=== PATIENT | female | born 1970 | race Caucasian/White ===

== ENCOUNTER 2017-08-13 19:12 | Emergency (ER) | payer SELFPAY | END 2017-08-13 22:16 | disposition left against medical advice (07) | LOC: ERS 19:12 | DX: Z53.21 Procedure and treatment not carried out due to patient leaving prior to being seen by health care provider (principal) | CPT/HCPCS: 93005 ==

== ENCOUNTER 2017-09-09 16:42 | Emergency (ER) | payer SELFPAY ==
[2017-09-09 17:24] LABS: #Basophils 0.1 thou/uL (0.0-0.2); #Eosinphils 0.2 thou/uL (0.0-0.7); #Lymphocytes 1.6 thou/uL (1.20-3.40); #Monocytes 0.6 thou/uL (0.11-0.59); #Neutrophils 4.5 thou/uL (1.40-6.50); %Basophils 0.8 % (0.0-1.0); %Eosinophils 2.9 % (0.0-10.0); %Lymphocytes 23.2 % (21.0-51.0); %Monocytes 8.3 % (0.0-10.0); %Neutrophils 64.8 % (42.0-75.0); Hemoglobin 13.6 g/dL (12.0-16.0); Mean Corpuscular HGB CONC 32.6 g/dL (32.0-36.0); Mean Corpuscular Hemoglobin 33.1 pg (27.0-31.0); Mean Platelet Volume 7.1 fL (7.4-10.4); Platelet Count 259 thou/uL (130-400); RBC Distribution Width 14.6 % (11.5-14.5); Red Blood Cell (RBC) Count 4.11 mill/uL (4.20-5.40); White Blood Cell (WBC) Count 6.9 thou/uL (4.8-10.8)
--- NOTE | 2017-09-09 17:45 | RAD ---
PORTABLE CHEST: 09/09/17 HISTORY: Chest pain. COMPARISON: 12/28/15 study. Heart size and mediastinum are within normal limits. Lungs are clear of infiltrates. Postoperative ch anges of the right clavicle are noted. Granulomas noted in the left upper lobe. IMPRESSION: No active intrathoracic disease. POS: [facility]
[2017-09-09 17:46] LABS: ALT (SGPT) 14 U/L (8-55); AST (SGOT) 24 U/L (5-34); Albumin 3.7 g/dL (3.5-5.0); Alkaline Phosphatase 71 U/L (40-150); Anion Gap 12 mmol/L (10-20); BUN (Urea Nitrogen) 12 mg/dL (7.0-18.7); Bilirubin, Total 0.6 mg/dL (0.2-1.2); CK (CPK) 44 U/L (29-168); Calc. Creatinine Clearance 0 mL/min (70-130); Calcium 9.2 mg/dL (7.8-10.44); Carbon Dioxide 23 mmol/L (22-29); Chloride 102 mmol/L (98-107); Estimated GFR-MDRD 81; Globulin 3.1 g/dL (2.4-3.5); Glucose 92 mg/dL (70-105); Lipase 9 U/L (8-78); Potassium 3.8 mmol/L (3.5-5.1); Protein, Total 6.8 g/dL (6.0-8.3); Sodium 133 mmol/L (136-145)
[2017-09-09 17:50] LABS: CKMB 1.5 ng/mL (0-6.6); Troponin I Less than 0.010 ng/mL (< 0.028)
== END 2017-09-09 21:30 | disposition left against medical advice (07) ==
LOC: ERS 16:42
DX: Z53.21 Procedure and treatment not carried out due to patient leaving prior to being seen by health care provider (principal)
CPT/HCPCS: 36415; 71045; 80053; 82550; 82553; 83690; 84484; 85025; 93005

== ENCOUNTER 2017-11-09 00:15 | Emergency (ER) | payer SELFPAY ==
[2017-11-09] MEDS ORDERED: Lidocaine 1% PF 5 ML VIAL ONE (00:35)
[2017-11-09] MEDS ORDERED: Lidocaine 1% w/Epinephrine 1:100K 20 ML VIAL ONE (00:57)
[2017-11-09] MEDS ORDERED: Ketorolac Tromethamine 30 MG/ML VIAL ONE (01:39)
[2017-11-09] MEDS ORDERED: Clindamycin 150 MG CAP ONE (03:24)
== END 2017-11-09 03:24 | disposition home or self-care (01) ==
LOC: ERS 00:15
DX: L02.416 Cutaneous abscess of left lower limb (principal); I10 Essential (primary) hypertension; F41.9 Anxiety disorder, unspecified; F32.9 Major depressive disorder, single episode, unspecified; F17.210 Nicotine dependence, cigarettes, uncomplicated
CPT/HCPCS: 10060; 87070; 87205; 96372; J1885; J2001

== ENCOUNTER 2017-11-12 12:29 | Emergency (ER) | payer SELFPAY | END 2017-11-12 14:53 | disposition left against medical advice (07) | LOC: ERS 12:29 | DX: Z53.21 Procedure and treatment not carried out due to patient leaving prior to being seen by health care provider (principal) ==

== ENCOUNTER 2018-04-05 16:26 | Emergency (ER) | payer SELFPAY ==
[2018-04-05 17:00] LABS: Bilirubin Small (Negative); Blood, Urine Negative (Negative); Clarity CLOUDY (Clear); Glucose, Urine (Dipstick) Negative (Negative); Leukocyte Small (Negative); Nitrite Negative (Negative); Protein, Urine (Dipstick) Negative (Neg-Trace)
[2018-04-05 17:01] LABS: Bacteria/HPF 1+ HPF (None Seen); Hyaline Casts/LPF 4-6 HYALINE CAST LPF (0-3 Hyaline); Pathc Cast-AUWi Flag 1.59 (0-2.49); Pregnancy Test - Urine (BHCG) Negative (Negative); Pregu Control Background? CLEAR/WHITE (CLR/WHITE); Pregu Control Bar Appear? YES (CONTROL BAR); RBC/HPF 0-3 HPF (0-3); WBC/HPF 0-3 HPF (0-3)
[2018-04-05 18:03] LABS: #Basophils 0.1 thou/uL (0.0-0.2); #Eosinphils 0.2 thou/uL (0.0-0.7); #Lymphocytes 2.2 thou/uL (1.20-3.40); #Monocytes 0.4 thou/uL (0.11-0.59); %Basophils 1.2 % (0.0-1.0); %Eosinophils 2.3 % (0.0-10.0); %Lymphocytes 32.2 % (21.0-51.0); %Monocytes 5.6 % (0.0-10.0); %Neutrophils 58.7 % (42.0-75.0); Hemoglobin 13.5 g/dL (12.0-16.0); Mean Corpuscular HGB CONC 33.7 g/dL (32.0-36.0); Mean Corpuscular Hemoglobin 32.6 pg (27.0-31.0); Mean Corpuscular Volume 96.8 fL (78.0-98.0); Mean Platelet Volume 6.4 fL (7.4-10.4); Platelet Count 259 thou/uL (130-400); RBC Distribution Width 12.9 % (11.5-14.5); Red Blood Cell (RBC) Count 4.13 mill/uL (4.20-5.40); White Blood Cell (WBC) Count 6.8 thou/uL (4.8-10.8)
[2018-04-05 18:25] LABS: ALT (SGPT) 9 U/L (8-55); AST (SGOT) 17 U/L (5-34); Albumin 3.9 g/dL (3.5-5.0); Alkaline Phosphatase 86 U/L (40-150); Anion Gap 12 mmol/L (10-20); BUN (Urea Nitrogen) 7 mg/dL (7.0-18.7); Bilirubin, Total 0.3 mg/dL (0.2-1.2); Calc. Creatinine Clearance 0 mL/min (70-130); Calcium 9.1 mg/dL (7.8-10.44); Carbon Dioxide 23 mmol/L (22-29); Chloride 103 mmol/L (98-107); Estimated GFR-MDRD 81; Globulin 3.8 g/dL (2.4-3.5); Glucose 85 mg/dL (70-105); Lipase 6 U/L (8-78); Potassium 3.4 mmol/L (3.5-5.1); Protein, Total 7.7 g/dL (6.0-8.3); Sodium 135 mmol/L (136-145)
[2018-04-05] MEDS ORDERED: Ondansetron ODT 8 MG TAB ONE (18:38)
[2018-04-05] MEDS ORDERED: Dicyclomine 20 MG TAB ONE (18:40)
== END 2018-04-05 19:32 | disposition home or self-care (01) ==
LOC: ERS 16:26
DX: K29.70 Gastritis, unspecified, without bleeding (principal); Z71.6 Tobacco abuse counseling; F17.210 Nicotine dependence, cigarettes, uncomplicated; I10 Essential (primary) hypertension; M06.9 Rheumatoid arthritis, unspecified; J45.909 Unspecified asthma, uncomplicated; F41.9 Anxiety disorder, unspecified; F32.9 Major depressive disorder, single episode, unspecified; F22 Delusional disorders; Z79.899 Other long term (current) drug therapy
CPT/HCPCS: 36415; 80053; 81003; 81015; 81025; 82140; 83690; 85025; 99406

== ENCOUNTER 2018-04-21 02:16 | Emergency (ER) | payer SELFPAY ==
[2018-04-21] MEDS ORDERED: Sulfameth/Trimethoprim DS 800-160mg TAB ONE (04:13)
[2018-04-21] MEDS ORDERED: Cephalexin 250 MG CAP ONE (04:13)
--- NOTE | 2018-04-21 07:53 | ULT ---
PRELIMINARY REPORT/[facility]/EMERGENTY AFTER-HOURS PROCEDURE US Duplex Left Lower Extremity Veins CLINICAL HISTORY: 47 years old, female; Pain; Leg, upper; Left TECHNIQUE: Real-time duplex ultrasound scan of the left lower extremity veins integrating B-mode two dimensional vascular structure, Doppler spectral analysis, color flow Doppler imaging and compression. COMPARISON: No relevant prior studies available. FINDINGS: Deep veins: Normal. No DVT in the visualized common femoral, femoral, proximal deep femoral or poplit eal veins. The veins demonstrate normal color flow, are normally compressible, with normal phasic nilesh w and/or augmentation response. Superficial veins: Normal. No thrombus in the visualized great saphenous vein. Soft tissues: Benign-appearing lymph nodes within the left inguinal region, likely reactive. No popli teal cyst. IMPRESSION: No DVT. Thank you for allowing us to participate in the care of your patient. Dictated and Authenticated by: Phu Davis MD 04/21/2018 3:57 AM Central Time ([place] & [place]) FINAL REPORT VENOUS DOPPLER ULTRASOUND OF THE LEFT LOWER EXTREMITY: I agree with the preliminary report given by Dr. Phu Davis of [facility]. POS: [facility]
== END 2018-04-21 04:16 | disposition home or self-care (01) ==
LOC: ERS 02:16
DX: L03.317 Cellulitis of buttock (principal); F41.9 Anxiety disorder, unspecified; F22 Delusional disorders; F17.210 Nicotine dependence, cigarettes, uncomplicated; M06.9 Rheumatoid arthritis, unspecified; I10 Essential (primary) hypertension; J45.909 Unspecified asthma, uncomplicated; Z79.899 Other long term (current) drug therapy

== ENCOUNTER 2018-06-11 00:41 | Emergency (ER) | payer SELFPAY | END 2018-06-11 01:29 | disposition home or self-care (01) | LOC: ERS 00:41 | DX: F11.10 Opioid abuse, uncomplicated (principal); Z71.6 Tobacco abuse counseling; I10 Essential (primary) hypertension; J45.909 Unspecified asthma, uncomplicated; F41.9 Anxiety disorder, unspecified; F32.9 Major depressive disorder, single episode, unspecified; F17.210 Nicotine dependence, cigarettes, uncomplicated | CPT/HCPCS: 99406 ==

== ENCOUNTER 2018-06-25 21:12 | Inpatient (IN) | payer SELFPAY ==
--- NOTE | 2018-06-25 22:14 | RAD ---
TWO VIEWS OF THE CHEST: 06/25/18 COMPARISON: 01/25/17 HISTORY: Chest pain. FINDINGS: There is increased linear interstitial density noted bilaterally with pulmonary hyperinflation sugges ting COPD in the proper clinical setting, stable. There is postoperative hardware associated with the right clavicle. No pneumothorax, pleural fluid, focal consolidation, or alveolar edema. IMPRESSION: No acute findings - stable appearance of the chest as detailed above. POS: [facility]
[2018-06-25 22:17] LABS: ALT (SGPT) 11 U/L (8-55); AST (SGOT) 28 U/L (5-34); Albumin 3.7 g/dL (3.5-5.0); Alkaline Phosphatase 80 U/L (40-150); Anion Gap 15 mmol/L (10-20); BUN (Urea Nitrogen) 9 mg/dL (7.0-18.7); Bilirubin, Total 0.2 mg/dL (0.2-1.2); CK (CPK) 30 U/L (29-168); Calc. Creatinine Clearance 0 mL/min (70-130); Calcium 9.4 mg/dL (7.8-10.44); Carbon Dioxide 24 mmol/L (22-29); Chloride 102 mmol/L (98-107); Estimated GFR-MDRD 77; Globulin 4.2 g/dL (2.4-3.5); Glucose 104 mg/dL (70-105); Lipase 17 U/L (8-78); Potassium 4.9 mmol/L (3.5-5.1); Protein, Total 7.9 g/dL (6.0-8.3); Sodium 136 mmol/L (136-145)
[2018-06-25 22:20] LABS: CKMB 0.8 ng/mL (0-6.6); Troponin I Less than 0.010 ng/mL (< 0.028)
[2018-06-25 22:24] LABS: #Basophils 0.1 thou/uL (0.0-0.2); #Eosinphils 0.3 thou/uL (0.0-0.7); #Monocytes 0.6 thou/uL (0.11-0.59); #Neutrophils 4.1 thou/uL (1.40-6.50); %Basophils 1.2 % (0.0-1.0); %Eosinophils 4.1 % (0.0-10.0); %Lymphocytes 37.2 % (21.0-51.0); %Neutrophils 50.6 % (42.0-75.0); Hemoglobin 13.1 g/dL (12.0-16.0); Mean Corpuscular HGB CONC 31.9 g/dL (32.0-36.0); Mean Corpuscular Hemoglobin 30.4 pg (27.0-31.0); Mean Corpuscular Volume 95.6 fL (78.0-98.0); Mean Platelet Volume 6.8 fL (7.4-10.4); Platelet Count 344 thou/uL (130-400); RBC Distribution Width 12.6 % (11.5-14.5); Red Blood Cell (RBC) Count 4.31 mill/uL (4.20-5.40); White Blood Cell (WBC) Count 8.1 thou/uL (4.8-10.8)
[2018-06-26 01:45] VITALS: BMI 23.5
[2018-06-26 02:03] LABS: Troponin I Less than 0.010 ng/mL (< 0.028)
[2018-06-26 06:42] LABS: Troponin I Less than 0.010 ng/mL (< 0.028)
[2018-06-26] MEDS ORDERED: Ondansetron PF 4 MG/2 ML Vial IVP PRN (09:36)
[2018-06-26] MEDS ORDERED: Ondansetron ODT 4 MG TAB PO PRN (09:36)
[2018-06-26] MEDS ORDERED: Diazepam 5 MG TAB PO PRN (09:50)
[2018-06-26] MEDS ORDERED: Diazepam 5 MG TAB ONE (09:58)
[2018-06-26] MEDS ORDERED: Thiamine HCl 200 MG/2 ML VIAL IM SCH (10:00)
[2018-06-26] MEDS ORDERED: Diazepam 5 MG TAB PO SCH (10:00)
[2018-06-26] MEDS: Sodium Chloride 0.9% 1,000 ML IV SCH ×2 (10:02→21:56)
[2018-06-26] MEDS: Nicotine 21 MG PATCH TD SCH (10:06)
[2018-06-26] MEDS ORDERED: Lorazepam 1 MG TAB PO PRN ×2 (12:26→12:29)
[2018-06-26 15:41] LABS: #Eosinphils 0.1 thou/uL (0.0-0.7); #Lymphocytes 1.4 thou/uL (1.20-3.40); #Monocytes 0.4 thou/uL (0.11-0.59); #Neutrophils 10.1 thou/uL (1.40-6.50); %Basophils 0.2 % (0.0-1.0); %Eosinophils 0.5 % (0.0-10.0); %Lymphocytes 11.9 % (21.0-51.0); %Neutrophils 84.4 % (42.0-75.0); Hemoglobin 14.7 g/dL (12.0-16.0); Mean Corpuscular HGB CONC 31.2 g/dL (32.0-36.0); Mean Corpuscular Hemoglobin 30.2 pg (27.0-31.0); Mean Corpuscular Volume 96.8 fL (78.0-98.0); Mean Platelet Volume 7.1 fL (7.4-10.4); Platelet Count 334 thou/uL (130-400); RBC Distribution Width 12.8 % (11.5-14.5); Red Blood Cell (RBC) Count 4.88 mill/uL (4.20-5.40); White Blood Cell (WBC) Count 11.9 thou/uL (4.8-10.8)
[2018-06-26 16:02] LABS: Troponin I Less than 0.010 ng/mL (< 0.028)
[2018-06-26 16:51] LABS: ALT (SGPT) 16 U/L (8-55); AST (SGOT) 30 U/L (5-34); Albumin 3.7 g/dL (3.5-5.0); Alkaline Phosphatase 76 U/L (40-150); Anion Gap 16 mmol/L (10-20); BUN (Urea Nitrogen) 12 mg/dL (7.0-18.7); Bilirubin, Total 0.4 mg/dL (0.2-1.2); Calc. Creatinine Clearance 88 mL/min (70-130); Calcium 9.1 mg/dL (7.8-10.44); Carbon Dioxide 18 mmol/L (22-29); Chloride 101 mmol/L (98-107); Estimated GFR-MDRD 74; Globulin 4.1 g/dL (2.4-3.5); Glucose 229 mg/dL (70-105); Magnesium 2.5 mg/dL (1.6-2.6); Potassium 3.8 mmol/L (3.5-5.1); Protein, Total 7.8 g/dL (6.0-8.3); Sodium 131 mmol/L (136-145)
[2018-06-26] MEDS: Famotidine 20 MG TAB PO SCH (21:55)
--- NOTE | 2018-06-26 22:30 | HP ---
DATE OF ADMISSION: 06/26/2018 PRIMARY CARE PHYSICIAN: Dr. Blancas. CHIEF COMPLAINT: Chest pain. HISTORY OF PRESENT ILLNESS: Ms. Jean is a pleasant 47-year-old female who had presented to [facility] with some complaints of chest pain, shortness of breath, fever, chills, and nausea, she has a past medical history of hepatitis C, hypertension, rheumatoid arthritis, and asthma. She had reported smoking a half pack of cigarettes a day, she also reports a half gallon of vodka every 3 days. She states she used to use heroin and meth, her last use was about a day and half ago. She states she use 1.5 grams of heroin per day until she quit. She states her last drink of vodka was at that time as well. She states she had tried to quit drinking in the past; however, had a seizure-like activity about 3 weeks ago when she tried to quit. She denies any heart disease or any family history of heart disease. In the ER, her initial workup included serial troponins which were found to be less than 0.010. Other lab work was essentially unremarkable. She underwent a chest x-ray which revealed no acute findings at that time. She denies any cough. She was brought up to the floor on telemetry on the observation unit for further workup and chest pain, rule out, by the time I had a chance to see her the next morning , she was diaphoretic, she had reported chest pain and mild convulsions, she reported she was nauseous with a headache. PAST MEDICAL HISTORY: Admits to hepatitis C, hypertension, rheumatoid arthritis , asthma, and multidrug abuse. PAST SURGICAL HISTORY: D&C x3, surgical on her right clavicle many years ago, tonsillectomy. PSYCHIATRIC HISTORY: She does report some anxiety and depression along with some paranoia. SOCIAL HISTORY: She reports drinking every day, she states she drinks about a half-gallon of vodka a day, last drink being about a little over 24 hours. She currently abuses methamphetamines, opiates, and tobacco, she states she smokes half pack per day. FAMILY HISTORY: Denies any family history at this time. KNOWN ALLERGIES: No known drug allergies. CURRENT HOME MEDICATIONS: She had reported taking home medications; however, when we confirmed with her pharmacy she had not filled any home medications since 11/2017. LABORATORY AND DIAGNOSTIC IMAGING: WBC 8.1, RBC 4.31, hemoglobin 13.1. Sodium 136, potassium 4.9, creatinine 0.80, GFR 77, glucose 104, AST 20, ALT 11. Troponin less than 0.010 x4. Lipase 17. Her chest x-ray on admission showed no acute findings. REVIEW OF SYSTEMS: Constitutional: She reports fever, chills, diaphoresis. Denies any weight loss or weight gain. Eyes: Denies any vision changes, blurred vision, eye pain. No hearing changes. No sore throat. Cardiovascular : Reports chest pain, palpitations. Respiratory: Reports some mild shortness of breath; however, denies cough or wheezing. Gastrointestinal: Denies any abdominal pain, but does report some nausea. Genitourinary: Denies constipation or diarrhea. Musculoskeletal: Denies any weakness, swelling or edema. Denies any fall. Skin: Denies any skin lesions or bruising. Neurologic: Does report seizures in the past due to alcohol withdrawal; however , no seizure-like activity at this time. Denies any weakness. Psychiatric: Does report multi-substance abuse, does report some anxiety and depression; however, no suicidal or homicidal ideation at this time. PHYSICAL EXAMINATION: VITAL SIGNS: Blood pressure 121/73, pulse 84, respirations 16, temperature 98.1 , O2 saturations 95% on room air. HEENT: Head is atraumatic, normocephalic. Pupils equal, round, and reactive to light. Extraocular muscles intact. No scleral icterus. Ears, nose, and throat clear. Moist mucous membranes. NECK: Supple, nontender. Trachea midline. CARDIOVASCULAR: Positive S1, S2. No murmurs or rubs. RESPIRATORY: Clear to auscultation bilaterally. No wheezes or rhonchi. ABDOMEN: Soft, nontender, bowel sounds present. No masses noted. MUSCULOSKELETAL: Strength 5+ bilaterally, rigidity noted, mild tremor noted. Pedal and radial pulses 2+ bilaterally. No edema noted. NEUROLOGIC: Alert and oriented x3. Speech is normal. No focal deficit noted. SKIN: Warm, diaphoretic, normal color. No bruising noted. No lesions. PSYCHIATRIC: The patient seems a little agitated, normal mood and affect. ASSESSMENT AND PLAN: 1. Chest pain, will rule out cardiac etiology with a stress test, serial troponins found to be unremarkable and less than 0.010 x4. Chest pain could likely be due to alcohol withdrawal, we will start the patient on the ASE protocol with Ativan per protocol, we will start on IV fluid hydration including normal saline, start IV thiamine, IV magnesium, Zofran as needed for nausea, folic acid and multivitamin. We will monitor the patient closely and further adjustments pending patient's progress. 2. History of hypertension, the patient had not been taking any home medications for her blood pressure, currently vital signs stable. We will closely monitor and add further antihypertensives as needed. 3. Alcohol abuse, continue ASE protocol with Ativan as above, we will monitor the patient closely. 4. Multidrug abuse, as above. We will monitor patient's symptoms closely, she is high risk, therefore, will undergo stress test during this visit to rule out cardiac causes of her chest pain. 5. Deep venous thrombosis prophylaxis. Lovenox daily. 6. Gastrointestinal prophylaxis with Pepcid twice daily, Zofran as needed for nausea. 7. Code status: FULL CODE. Disposition and further medical management pending patient's progress and workup , we will continue protocol and monitor patient's symptoms closely, will rule out cardiac etiology of chest pain, will likely discharge once stable, likely home. BEATRI[facility]
[2018-06-27] MEDS: Sodium Chloride 0.9% 1,000 ML IV SCH ×3 (03:35→20:05)
[2018-06-27] MEDS ORDERED: Diazepam 5 MG TAB PO PRN (04:00)
[2018-06-27 05:29] LABS: #Basophils 0.1 thou/uL (0.0-0.2); #Eosinphils 0.2 thou/uL (0.0-0.7); #Lymphocytes 2.4 thou/uL (1.20-3.40); #Monocytes 0.7 thou/uL (0.11-0.59); #Neutrophils 5.4 thou/uL (1.40-6.50); %Basophils 0.7 % (0.0-1.0); %Eosinophils 1.8 % (0.0-10.0); %Lymphocytes 27.7 % (21.0-51.0); %Monocytes 7.6 % (0.0-10.0); %Neutrophils 62.2 % (42.0-75.0); Hemoglobin 12.8 g/dL (12.0-16.0); Mean Corpuscular HGB CONC 32.4 g/dL (32.0-36.0); Mean Corpuscular Hemoglobin 31.4 pg (27.0-31.0); Mean Corpuscular Volume 96.9 fL (78.0-98.0); Platelet Count 291 thou/uL (130-400); RBC Distribution Width 12.8 % (11.5-14.5); Red Blood Cell (RBC) Count 4.07 mill/uL (4.20-5.40); White Blood Cell (WBC) Count 8.7 thou/uL (4.8-10.8)
[2018-06-27 05:36] LABS: Anion Gap 12 mmol/L (10-20); BUN (Urea Nitrogen) 11 mg/dL (7.0-18.7); Calc. Creatinine Clearance 107 mL/min (70-130); Calcium 8.1 mg/dL (7.8-10.44); Carbon Dioxide 23 mmol/L (22-29); Chloride 108 mmol/L (98-107); Estimated GFR-MDRD 86; Glucose 114 mg/dL (70-105); Potassium 3.6 mmol/L (3.5-5.1); Sodium 139 mmol/L (136-145)
[2018-06-27] MEDS: Nicotine 21 MG PATCH TD SCH (08:23)
[2018-06-27] MEDS: Folic Acid 1 MG TAB PO SCH (08:23)
[2018-06-27] MEDS: Multivitamin W/ Minerals 1 TAB PO SCH (08:23)
[2018-06-27] MEDS: Enoxaparin Sodium 40 MG/0.4 ML SYRINGE SC SCH (08:23)
[2018-06-27] MEDS: Famotidine 20 MG TAB PO SCH ×2 (08:23→20:05)
[2018-06-27] MEDS: Magnesium Oxide 400 MG TAB PO SCH (08:23)
--- NOTE | 2018-06-27 11:27 | PDOC.PN ---
- Subjective Encounter Start Date: 06/27/18 Encounter Start Time: 11:26 Patient lying in bed, she is continuing on ASE protocol. She denies any chest pain, palpitation, shortness of breath at this time. Dr Lopez with cardiology not recommending stress test at this time, chest pain likely due to withdrawal, currently chest pain free. She admits to wanting to get help and stop drinking. - Objective Resuscitation Status: Resuscitation Status FULL:Full Resuscitation MAR Reviewed: Yes Vital Signs & Weight: Vital Signs (12 hours) Temp Pulse Resp BP BP Pulse Ox 06/27/18 07:22 97.8 F 101 H 20 127/59 L 93 L 06/27/18 03:43 98.3 F 99 18 127/76 127/76 97 Weight Admit Weight 145 lb 14.4 oz Weight 154 lb 11.2 oz I&O: 06/26/18 06/27/18 06/28/18 06:59 06:59 06:59 Intake Total 480 4896 Balance 480 4896 Result Diagrams: 06/27/18 05:03 06/27/18 05:03 Radiology Reviewed by me: Yes Phys Exam - Physical Examination Constitutional: NAD HEENT: PERRLA, moist MMs, oral pharynx no lesions Neck: no JVD, supple Respiratory: no wheezing, no rales, clear to auscultation bilateral Cardiovascular: RRR, no significant murmur, no rub Gastrointestinal: soft, non-tender, no distention, positive bowel sounds Musculoskeletal: no edema, pulses present Neurological: non-focal, normal sensation, moves all 4 limbs Lymphatic: no nodes Psychiatric: normal affect, A&O x 3 Deviation from normal: Anxious Skin: no rash, normal turgor, cap refill <2 seconds Dx/Plan - Plan cont current plan of care, DVT proph w/lovenox, DVT proph w/SCDs * Continue Ativan 1mg TID for now plan to wean * Educated on the importance of alcohol sobriety and cessation of smoking and drug use * Continue IV hydration, tolerating diet * Change to inpatient to continue to monitor for alcohol withdrawal * Cardiology not recommending stress test at this time due to multi substance abuse
[2018-06-27] MEDS: Lorazepam 1 MG TAB PO SCH ×2 (15:13→20:05)
[2018-06-28] MEDS: Sodium Chloride 0.9% 1,000 ML IV SCH ×3 (02:53→23:16)
[2018-06-28] MEDS: Folic Acid 1 MG TAB PO SCH (07:50)
[2018-06-28] MEDS: Lorazepam 1 MG TAB PO SCH ×2 (07:50→20:29)
[2018-06-28] MEDS: Magnesium Oxide 400 MG TAB PO SCH (07:51)
[2018-06-28] MEDS: Famotidine 20 MG TAB PO SCH ×2 (07:51→20:29)
[2018-06-28] MEDS: Multivitamin W/ Minerals 1 TAB PO SCH (07:52)
[2018-06-28] MEDS: Enoxaparin Sodium 40 MG/0.4 ML SYRINGE SC SCH (07:52)
--- NOTE | 2018-06-28 11:07 | PDOC.PN ---
- Subjective Encounter Start Date: 06/28/18 Encounter Start Time: 10:15 -: Patient is in no distress, denies complaints today -: Reports mild tremor, reports medications are helping States she would like to try Rehab once discharged - Objective Resuscitation Status: Resuscitation Status FULL:Full Resuscitation Vital Signs & Weight: Vital Signs (12 hours) Temp Pulse Resp BP BP Pulse Ox 06/28/18 08:00 155/89 H 06/28/18 07:49 98.4 F 104 H 16 155/89 H 97 06/28/18 04:00 98.7 F 97 16 162/99 H 162/99 H 96 06/28/18 00:00 98.1 F 97 16 144/91 H 144/91 H 95 Weight Admit Weight 66.179 kg Weight 70.171 kg I&O: 06/27/18 06/28/18 06/29/18 06:59 06:59 06:59 Intake Total 4896 1850 Balance 4896 1850 Result Diagrams: 06/27/18 05:03 06/27/18 05:03 Phys Exam - Physical Examination Constitutional: NAD HEENT: PERRLA, moist MMs Neck: no nodes, no JVD Respiratory: no wheezing, clear to auscultation bilateral Cardiovascular: RRR, no significant murmur Gastrointestinal: soft, non-tender Musculoskeletal: no edema, pulses present Neurological: non-focal, normal sensation Lymphatic: no nodes Psychiatric: normal affect, A&O x 3 Deviation from normal: Flat affect Skin: no rash, normal turgor, cap refill <2 seconds Dx/Plan (1) Withdrawal from opioids Code(s): F11.23 - OPIOID DEPENDENCE WITH WITHDRAWAL Status: Acute (2) Withdrawal from nicotine Code(s): F17.203 - NICOTINE DEPENDENCE UNSPECIFIED, WITH WITHDRAWAL Status: Acute (3) Withdrawal symptoms, alcohol Code(s): F10.239 - ALCOHOL DEPENDENCE WITH WITHDRAWAL, UNSPECIFIED Status: Acute - Plan cont current plan of care Taper Ativan, continue B vitamins -: Cessation counseling for alcohol, drugs and smoking -: Will continue to monitor for signs of withdrawal * .
[2018-06-28] MEDS: Nicotine 21 MG PATCH TD SCH (13:43)
[2018-06-28] MEDS: Acetaminophen 325 MG TAB PO PRN (23:56)
[2018-06-29] MEDS: Sodium Chloride 0.9% 1,000 ML IV SCH ×3 (05:04→11:04)
[2018-06-29] MEDS: Lorazepam 1 MG TAB PO SCH (07:44)
[2018-06-29] MEDS: Acetaminophen 325 MG TAB PO PRN (07:44)
[2018-06-29] MEDS: Multivitamin W/ Minerals 1 TAB PO SCH (07:44)
[2018-06-29] MEDS: Magnesium Oxide 400 MG TAB PO SCH (07:44)
[2018-06-29] MEDS: Famotidine 20 MG TAB PO SCH (07:44)
[2018-06-29] MEDS: Folic Acid 1 MG TAB PO SCH (07:44)
[2018-06-29] MEDS: Enoxaparin Sodium 40 MG/0.4 ML SYRINGE SC SCH (07:45)
[2018-06-29] MEDS: Nicotine 21 MG PATCH TD SCH (09:01)
[2018-06-29 11:27] VITALS: BP 143/90; TEMP 98.4
--- NOTE | 2018-06-29 19:27 | DIS ---
DATE OF ADMISSION: 06/26/2018 DATE OF DISCHARGE: 06/29/2018 DISCHARGE DIAGNOSES: 1. Polysubstance abuse. 2. Alcohol abuse. 3. Tobacco abuse. 4. Hypertension. 5. Chest pain, musculoskeletal. 6. Noncompliance. CONSULTATIONS: None. PERTINENT LABORATORY DATA AND IMAGING DATA: Sodium ranged between 131-139 and magnesium 2.5. LFTs w ithin normal limits. Troponin I negative x3. Lipase 17. CBC showed a white blood cell count rangin g between 8.1-11.9, hemoglobin ranged between 12.8-14.7. Portable chest x-ray dated 06/25/2018 showe d no acute cardiopulmonary process. HOSPITAL COURSE: The patient was initially admitted after presenting with chest pain, shortness of b reath and nausea in the context of polysubstance abuse including alcohol, tobacco, and methamphetamin es. The patient underwent general evaluation and received supportive management including ASE protoc ol, Ativan, IV fluids, multivitamin and antiemetics. The patient clinically improved with supportive management, IV fluids and general monitoring. The patient exhibited no evidence of seizure activity due to alcohol withdrawal and stabilized with supportive management. Patient ambulatory without ass istance or difficulty, tolerating regular oral intake and voiding appropriately. Overall, the patien t remained clinically stable during the hospital course. I have examined the patient at the time of discharge and discussed followup instructions. The patient is clinically stable and ready [facility]. DISCHARGE MEDICATION: Metoprolol tartrate 50 mg 1 tab p.o. daily. FOLLOWUP: Patient will follow up with Dr. Peyton Blancas within 7 days of discharge. CONDITION ON DISCHARGE: Stable. ACTIVITY: Ad rios. DIET: Regular. CODE STATUS: FULL. DISPOSITION: Home 06/29/2018. SPECIAL INSTRUCTIONS: The patient given information regarding alcohol and drug abuse detoxification programs.
== END 2018-06-29 15:17 | disposition home or self-care (01) | DRG 897 ==
LOC: ERS 21:12 → 2SW 06-26 00:30 → OBSVTOIN 06-26 00:38 → T4-A 06-27 13:03
PROVIDERS: ADMIT Internal Medicine; ATTEND Internal Medicine
DX: F10.239 Alcohol dependence with withdrawal, unspecified (principal); F15.10 Other stimulant abuse, uncomplicated; B19.20 Unspecified viral hepatitis C without hepatic coma; I10 Essential (primary) hypertension; M06.9 Rheumatoid arthritis, unspecified; J45.909 Unspecified asthma, uncomplicated; F41.9 Anxiety disorder, unspecified; F32.9 Major depressive disorder, single episode, unspecified; F22 Delusional disorders; Z91.14 Patient's other noncompliance with medication regimen; Z79.899 Other long term (current) drug therapy; F11.23 Opioid dependence with withdrawal; F17.203 Nicotine dependence unspecified, with withdrawal
CPT/HCPCS: 36415; 71046; 80048; 80053; 82553; 83690; 83735; 84484; 85025; 93005; J1650; J2405; J3411; J3475; J7050

== ENCOUNTER 2018-10-11 16:05 | Emergency (ER) | payer SELFPAY ==
[2018-10-11 16:47] LABS: #Basophils 0.1 thou/uL (0.0-0.2); #Eosinphils 0.4 thou/uL (0.0-0.7); #Lymphocytes 1.6 thou/uL (1.20-3.40); #Neutrophils 5.9 thou/uL (1.40-6.50); %Basophils 0.8 % (0.0-1.0); %Lymphocytes 17.9 % (21.0-51.0); %Neutrophils 66.3 % (42.0-75.0); Hemoglobin 13.4 g/dL (12.0-16.0); Mean Corpuscular Hemoglobin 31.5 pg (27.0-31.0); Mean Corpuscular Volume 95.4 fL (78.0-98.0); Mean Platelet Volume 7.9 fL (7.4-10.4); Platelet Count 182 thou/uL (130-400); RBC Distribution Width 12.7 % (11.5-14.5); Red Blood Cell (RBC) Count 4.27 mill/uL (4.20-5.40); White Blood Cell (WBC) Count 8.9 thou/uL (4.8-10.8)
[2018-10-11 16:54] LABS: Bilirubin Negative (Negative); Blood, Urine Negative (Negative); Clarity CLOUDY (Clear); Glucose, Urine (Dipstick) Negative (Negative); Leukocyte Moderate (Negative); Nitrite Negative (Negative); Protein, Urine (Dipstick) Negative (Neg-Trace); Specific Gravity, Urine 1.019 (1.002-1.036)
[2018-10-11 16:56] LABS: Pregnancy Test - Urine (BHCG) Negative (Negative); Specific Gravity 1.019 (1.002-1.036)
[2018-10-11 16:57] LABS: Bacteria/HPF 3+ HPF (None Seen); Hyaline Casts/LPF 7-10 HYALINE CAST LPF (0-3 Hyaline); Pregu Control Background? CLEAR/WHITE (CLR/WHITE); Pregu Control Bar Appear? YES (CONTROL BAR); RBC/HPF 0-3 HPF (0-3); WBC/HPF 21-50 HPF (0-3); Yeast-AUWi Flag 15.5 (0-25.0)
[2018-10-11 16:58] LABS: Manual Microscopic Reviewed? No Path Casts Seen
[2018-10-11 17:02] LABS: ALT (SGPT) 38 U/L (8-55); AST (SGOT) 40 U/L (5-34); Albumin 3.8 g/dL (3.5-5.0); Alkaline Phosphatase 135 U/L (40-150); Anion Gap 12 mmol/L (10-20); BUN (Urea Nitrogen) 9 mg/dL (7.0-18.7); Bilirubin, Total 0.6 mg/dL (0.2-1.2); Calc. Creatinine Clearance 0 mL/min (70-130); Carbon Dioxide 24 mmol/L (22-29); Chloride 104 mmol/L (98-107); Estimated GFR-MDRD 80; Globulin 3.5 g/dL (2.4-3.5); Glucose 106 mg/dL (70-105); Lipase 12 U/L (8-78); Potassium 3.9 mmol/L (3.5-5.1); Protein, Total 7.3 g/dL (6.0-8.3); Sodium 136 mmol/L (136-145)
== END 2018-10-11 17:25 | disposition home or self-care (01) ==
LOC: ERS 16:05
DX: N39.0 Urinary tract infection, site not specified (principal); R10.2 Pelvic and perineal pain; I10 Essential (primary) hypertension; M06.9 Rheumatoid arthritis, unspecified; J45.909 Unspecified asthma, uncomplicated; F41.9 Anxiety disorder, unspecified; F31.9 Bipolar disorder, unspecified; F22 Delusional disorders; F17.210 Nicotine dependence, cigarettes, uncomplicated
CPT/HCPCS: 36415; 80053; 81003; 81015; 81025; 83690; 85025; 87086; 99284

== ENCOUNTER 2019-02-15 19:44 | Emergency (ER) | payer SELFPAY ==
[2019-02-15 20:19] LABS: #Eosinphils 0.3 thou/uL (0.0-0.7); #Lymphocytes 1.9 thou/uL (1.20-3.40); #Monocytes 0.5 thou/uL (0.11-0.59); #Neutrophils 4.3 thou/uL (1.40-6.50); %Basophils 0.5 % (0.0-1.0); %Eosinophils 3.6 % (0.0-10.0); %Lymphocytes 27.1 % (21.0-51.0); %Monocytes 7.7 % (0.0-10.0); %Neutrophils 61.2 % (42.0-75.0); Hemoglobin 13.2 g/dL (12.0-16.0); Mean Corpuscular HGB CONC 32.1 g/dL (32.0-36.0); Mean Corpuscular Hemoglobin 31.7 pg (27.0-31.0); Mean Corpuscular Volume 98.8 fL (78.0-98.0); Mean Platelet Volume 7.5 fL (7.4-10.4); Platelet Count 253 thou/uL (130-400); RBC Distribution Width 12.2 % (11.5-14.5); Red Blood Cell (RBC) Count 4.16 mill/uL (4.20-5.40)
[2019-02-15 20:26] LABS: INR-International Normal Ratio 0.9; Prothrombin Time 12.2 SEC (12.0-14.7)
[2019-02-15 20:37] LABS: BHCG - Serum Negative (NEGATIVE); Pregs Control Background? CLEAR/WHITE (CLR/WHITE); Pregs Control Bar Appear? YES (CONTROL BAR)
[2019-02-15 20:42] LABS: ALT (SGPT) 16 U/L (8-55); AST (SGOT) 25 U/L (5-34); Albumin 3.9 g/dL (3.5-5.0); Alkaline Phosphatase 73 U/L (40-150); Anion Gap 11 mmol/L (10-20); BUN (Urea Nitrogen) 11 mg/dL (7.0-18.7); Bilirubin, Total 0.3 mg/dL (0.2-1.2); Calc. Creatinine Clearance 0 mL/min (70-130); Calcium 9.3 mg/dL (7.8-10.44); Carbon Dioxide 26 mmol/L (22-29); Chloride 106 mmol/L (98-107); Estimated GFR-MDRD 71; Globulin 3.3 g/dL (2.4-3.5); Glucose 127 mg/dL (70-105); Lipase 7 U/L (8-78); Potassium 3.3 mmol/L (3.5-5.1); Protein, Total 7.2 g/dL (6.0-8.3); Sodium 140 mmol/L (136-145)
--- NOTE | 2019-02-15 20:54 | ULT ---
RIGHT UPPER QUADRANT ULTRASOUND: 02/15/19 COMPARISON: 04/28/11. HISTORY: Abdominal pain for one week with bloating. History of hepatis C. TECHNIQUE: Multiplanar spivey scale and color Doppler images were obtained in a right upper quadrant abdominal ult rasound. FINDINGS: The liver demonstrates increased echogenicity. There is mild central intrahepatic biliary dilatation. No focal liver lesions are seen. The gallbladder is normal without stones, gallbladder wall thickening or pericholecystic fluid. The c ommon bile duct is enlarged measuring 1.1 cm. The pancreatic duct is mildly prominent. The right kidney is normal in echogenicity without hydroneph rosis or calculus and measures 9.8 cm in length. IMPRESSION: 1. Fatty liver. 2. Nonspecific biliary dilatation. A CT of the abdomen for liver mass protocol is recommended fo r further evaluation. POS: [facility]
== END 2019-02-15 21:37 | disposition home or self-care (01) ==
LOC: ERS 19:44
DX: K76.0 Fatty (change of) liver, not elsewhere classified (principal); R60.0 Localized edema; R10.11 Right upper quadrant pain; I10 Essential (primary) hypertension; F41.9 Anxiety disorder, unspecified; F32.9 Major depressive disorder, single episode, unspecified; F17.210 Nicotine dependence, cigarettes, uncomplicated; Z79.899 Other long term (current) drug therapy
CPT/HCPCS: 36415; 76705; 80053; 83690; 84703; 85025; 85610

== ENCOUNTER 2019-03-11 05:37 | Emergency (ER) | payer SELFPAY | END 2019-03-11 06:11 | disposition home or self-care (01) | LOC: ERS 05:37 | DX: L02.413 Cutaneous abscess of right upper limb (principal); I10 Essential (primary) hypertension; M06.9 Rheumatoid arthritis, unspecified; J45.909 Unspecified asthma, uncomplicated; F41.9 Anxiety disorder, unspecified; F31.9 Bipolar disorder, unspecified; F22 Delusional disorders; F17.210 Nicotine dependence, cigarettes, uncomplicated; Z79.899 Other long term (current) drug therapy | CPT/HCPCS: 10060 ==

== ENCOUNTER 2019-03-12 03:46 | Emergency (ER) | payer SELFPAY | END 2019-03-12 04:02 | disposition home or self-care (01) | LOC: ERS 03:46 | DX: Z48.01 Encounter for change or removal of surgical wound dressing (principal); I10 Essential (primary) hypertension; M06.9 Rheumatoid arthritis, unspecified; J45.909 Unspecified asthma, uncomplicated; F41.9 Anxiety disorder, unspecified; F32.9 Major depressive disorder, single episode, unspecified; F22 Delusional disorders; F17.210 Nicotine dependence, cigarettes, uncomplicated | CPT/HCPCS: 99282 ==

== ENCOUNTER 2019-03-13 06:15 | Emergency (ER) | payer SELFPAY | END 2019-03-13 07:27 | disposition home or self-care (01) | LOC: ERS 06:15 | DX: Z48.817 Encounter for surgical aftercare following surgery on the skin and subcutaneous tissue (principal); Z48.00 Encounter for change or removal of nonsurgical wound dressing; F41.9 Anxiety disorder, unspecified; F32.9 Major depressive disorder, single episode, unspecified; F22 Delusional disorders; I10 Essential (primary) hypertension; M06.9 Rheumatoid arthritis, unspecified; J45.909 Unspecified asthma, uncomplicated; F17.210 Nicotine dependence, cigarettes, uncomplicated; Z86.19 Personal history of other infectious and parasitic diseases | CPT/HCPCS: 99282 ==

== ENCOUNTER 2019-03-14 09:59 | Emergency (ER) | payer SELFPAY | END 2019-03-14 14:00 | disposition left against medical advice (07) | LOC: ERS 09:59 | DX: Z53.21 Procedure and treatment not carried out due to patient leaving prior to being seen by health care provider (principal) ==

== ENCOUNTER 2019-03-14 17:12 | Emergency (ER) | payer SELFPAY | END 2019-03-14 18:12 | disposition home or self-care (01) | LOC: ERS 17:12 | DX: Z48.817 Encounter for surgical aftercare following surgery on the skin and subcutaneous tissue (principal) | CPT/HCPCS: 99282 ==

== ENCOUNTER 2019-03-26 23:39 | Emergency (ER) | payer SELFPAY ==
--- NOTE | 2019-03-27 00:50 | RAD ---
RADIOGRAPH CHEST 1 VIEW: DATE: 03/27/2019 1204 AM HISTORY: 48-year-old female with chest pain FINDINGS: There are no airspace densities, pulmonary edema, pneumothorax, or cardiomegaly. The lateral costophr enic angles are sharp. Metallic plate and screws at right clavicle. IMPRESSION: 1. No acute cardiopulmonary findings. 2. Status post open reduction internal fixation of old right clavicular fracture.
== END 2019-03-27 01:32 | disposition left against medical advice (07) ==
LOC: ERS 23:39
DX: Z53.21 Procedure and treatment not carried out due to patient leaving prior to being seen by health care provider (principal)
CPT/HCPCS: 71045; 93005; 94760

== ENCOUNTER 2019-08-22 18:55 | Emergency (ER) | payer SELFPAY ==
--- NOTE | 2019-08-22 20:13 | RAD ---
Chest one view HISTORY: Chest pain. Palpitations. COMPARISON: 03/27/2019. FINDINGS: Cardiac silhouette and pulmonary vasculature are unremarkable. Mediastinum is midline. Lung s remain hyperinflated. Calcified granulomata at the left apex are stable. No lobar consolidation or evidence of pneumothorax. Internal fixation right clavicle. IMPRESSION: Hyperinflation and other chronic-type findings are stable.
[2019-08-22 20:33] LABS: #Eosinphils 0.2 thou/uL (0.0-0.7); #Lymphocytes 2.2 thou/uL (1.20-3.40); #Monocytes 0.5 thou/uL (0.11-0.59); %Basophils 0.6 % (0.0-1.0); %Eosinophils 3.5 % (0.0-10.0); %Lymphocytes 36.6 % (21.0-51.0); %Neutrophils 50.3 % (42.0-75.0); Hemoglobin 16.7 g/dL (12.0-16.0); Mean Corpuscular HGB CONC 33.9 g/dL (32.0-36.0); Mean Corpuscular Hemoglobin 32.4 pg (27.0-31.0); Mean Corpuscular Volume 95.6 fL (78.0-98.0); Mean Platelet Volume 7.7 fL (7.4-10.4); Platelet Count 227 thou/uL (130-400); Red Blood Cell (RBC) Count 5.17 mill/uL (4.20-5.40); White Blood Cell (WBC) Count 5.9 thou/uL (4.8-10.8)
[2019-08-22] MEDS ORDERED: Aspirin Chewable 81 MG TAB ONE (20:53)
[2019-08-22 21:29] LABS: ALT (SGPT) 16 U/L (8-55); AST (SGOT) 28 U/L (5-34); Albumin 4.1 g/dL (3.5-5.0); Alkaline Phosphatase 64 U/L (40-110); Anion Gap 17 mmol/L (10-20); BUN (Urea Nitrogen) 15 mg/dL (7.0-18.7); Bilirubin, Total 0.3 mg/dL (0.2-1.2); Calc. Creatinine Clearance 0 mL/min (70-130); Calcium 9.7 mg/dL (7.8-10.44); Carbon Dioxide 23 mmol/L (22-29); Chloride 101 mmol/L (98-107); Estimated GFR-MDRD 71; Globulin 3.6 g/dL (2.4-3.5); Glucose 89 mg/dL (70-105); Potassium 4.6 mmol/L (3.5-5.1); Protein, Total 7.7 g/dL (6.0-8.3); Sodium 136 mmol/L (136-145)
== END 2019-08-22 22:10 | disposition home or self-care (01) ==
LOC: ERS 18:55
DX: R07.9 Chest pain, unspecified (principal); F41.9 Anxiety disorder, unspecified; F32.9 Major depressive disorder, single episode, unspecified; I10 Essential (primary) hypertension; F17.210 Nicotine dependence, cigarettes, uncomplicated; Z86.19 Personal history of other infectious and parasitic diseases
CPT/HCPCS: 36415; 71045; 80053; 84484; 85025; 93005

== ENCOUNTER 2019-10-10 00:24 | Emergency (ER) | payer SELFPAY ==
[2019-10-10] MEDS ORDERED: Aspirin Chewable 81 MG TAB ONE (00:36)
[2019-10-10 01:11] LABS: #Basophils 0.1 thou/uL (0.0-0.2); #Eosinphils 0.2 thou/uL (0.0-0.7); #Lymphocytes 2.9 thou/uL (1.20-3.40); #Monocytes 0.6 thou/uL (0.11-0.59); #Neutrophils 3.4 thou/uL (1.40-6.50); %Basophils 1.5 % (0.0-1.0); %Eosinophils 2.9 % (0.0-10.0); %Neutrophils 47.5 % (42.0-75.0); Hemoglobin 14.3 g/dL (12.0-16.0); Mean Corpuscular HGB CONC 34.5 g/dL (32.0-36.0); Mean Corpuscular Hemoglobin 33.2 pg (27.0-31.0); Mean Corpuscular Volume 96.3 fL (78.0-98.0); Platelet Count 209 thou/uL (130-400); RBC Distribution Width 12.1 % (11.5-14.5); White Blood Cell (WBC) Count 7.2 thou/uL (4.8-10.8)
[2019-10-10 01:21] LABS: ALT (SGPT) 13 U/L (8-55); AST (SGOT) 20 U/L (5-34); Albumin 4.4 g/dL (3.5-5.0); Alkaline Phosphatase 75 U/L (40-110); Anion Gap 17 mmol/L (10-20); BUN (Urea Nitrogen) 19 mg/dL (7.0-18.7); Bilirubin, Total 0.3 mg/dL (0.2-1.2); Calc. Creatinine Clearance 0 mL/min (70-130); Calcium 9.8 mg/dL (7.8-10.44); Carbon Dioxide 27 mmol/L (22-29); Chloride 99 mmol/L (98-107); Estimated GFR-MDRD 66; Globulin 3.3 g/dL (2.4-3.5); Glucose 97 mg/dL (70-105); Potassium 3.7 mmol/L (3.5-5.1); Protein, Total 7.7 g/dL (6.0-8.3); Sodium 139 mmol/L (136-145)
--- NOTE | 2019-10-10 08:03 | RAD ---
CHEST 1 VIEW: INDICATION: History of chest pain. COMPARISON: Prior exam of 08/22/2019. FINDINGS: Lungs remain mildly hyperexpanded but clear. Heart size is normal. ___ The healed right clavicle fr acture is unchanged. No acute osseous abnormality is evident. IMPRESSION: No acute abnormality. POS: [facility]
== END 2019-10-10 01:50 | disposition home or self-care (01) ==
LOC: ERS 00:24
DX: R07.9 Chest pain, unspecified (principal); I10 Essential (primary) hypertension; F41.9 Anxiety disorder, unspecified; F32.9 Major depressive disorder, single episode, unspecified; F17.210 Nicotine dependence, cigarettes, uncomplicated; Z79.899 Other long term (current) drug therapy
CPT/HCPCS: 36415; 71045; 80053; 84484; 85025

== ENCOUNTER 2022-12-23 19:38 | Emergency (ER) | payer SELFPAY ==
[2022-12-23 21:15] LABS: #Basophils 0.1 thou/uL (0.0-0.2); #Eosinphils 0.2 thou/uL (0.0-0.7); #Monocytes 0.6 thou/uL (0.11-0.59); #Neutrophils 3.1 thou/uL (1.40-6.50); %Basophils 0.9 % (0.0-1.0); %Eosinophils 3.1 % (0.0-10.0); %Lymphocytes 28.7 % (21.0-51.0); %Monocytes 10.7 % (0.0-10.0); %Neutrophils 56.4 % (42.0-75.0); Hemoglobin 12.9 g/dL (12.0-16.0); Mean Corpuscular HGB CONC 30.4 g/dL (32.0-36.0); Mean Corpuscular Hemoglobin 29.1 pg (27.0-31.0); Mean Corpuscular Volume 95.7 fl (78.0-98.0); Mean Platelet Volume 9.9 fL (7.4-10.4); Platelet Count 220 10x3/uL (130-400); RBC Distribution Width 12.8 % (11.5-14.5); Red Blood Cell (RBC) Count 4.44 mill/uL (4.20-5.40); White Blood Cell (WBC) Count 5.5 10x3/uL (4.8-10.8)
[2022-12-23 21:40] LABS: ALT (SGPT) 14 U/L (8-55); AST (SGOT) 21 U/L (5-34); Albumin 3.9 g/dL (3.5-5.0); Alkaline Phosphatase 77 U/L (40-110); Anion Gap 14 mmol/L (10-20); BUN (Urea Nitrogen) 22 mg/dL (9.8-20.1); Bilirubin, Total 0.5 mg/dL (0.2-1.2); Calc. Creatinine Clearance 0 mL/min (70-130); Calcium 9.6 mg/dL (7.8-10.44); Carbon Dioxide 19 mmol/L (22-29); Chloride 109 mmol/L (98-107); Estimated GFR 73; Globulin 3.4 g/dL (2.4-3.5); Glucose 86 mg/dL (70-105); Potassium 4.1 mmol/L (3.5-5.1); Protein, Total 7.3 g/dL (6.0-8.3); Sodium 138 mmol/L (136-145)
== END 2022-12-23 23:45 ==
LOC: ERS 19:38
DX: S01.81XA Laceration without foreign body of other part of head, initial encounter (principal); R55 Syncope and collapse; I10 Essential (primary) hypertension; F17.210 Nicotine dependence, cigarettes, uncomplicated; W18.30XA Fall on same level, unspecified, initial encounter
CPT/HCPCS: 12011; 36415; 70450; 80053; 84484; 85025; 93005

== ENCOUNTER 2023-03-05 13:01 | Observation (INO) | payer SELFPAY ==
[2023-03-05] MEDS ORDERED: Naloxone HCl 0.4 mg/ml Vial ONE ×2 (15:28→18:23)
[2023-03-05 16:30] LABS: #Basophils 0.1 thou/uL (0.0-0.2); #Eosinphils 0.2 thou/uL (0.0-0.7); #Monocytes 0.5 thou/uL (0.11-0.59); #Neutrophils 3.3 thou/uL (1.40-6.50); %Basophils 1.2 % (0.0-1.0); %Eosinophils 3.2 % (0.0-10.0); %Lymphocytes 30.2 % (21.0-51.0); %Neutrophils 56.2 % (42.0-75.0); Hemoglobin 14.7 g/dL (12.0-16.0); Mean Corpuscular HGB CONC 32.6 g/dL (32.0-36.0); Mean Corpuscular Hemoglobin 30.7 pg (27.0-31.0); Mean Corpuscular Volume 94.2 fl (78.0-98.0); Mean Platelet Volume 10.5 fL (7.4-10.4); Platelet Count 203 10x3/uL (130-400); RBC Distribution Width 14.3 % (11.5-14.5); Red Blood Cell (RBC) Count 4.79 mill/uL (4.20-5.40); White Blood Cell (WBC) Count 5.9 10x3/uL (4.8-10.8)
[2023-03-05 16:52] LABS: ALT (SGPT) 22 U/L (8-55); AST (SGOT) 41 U/L (5-34); Albumin 4.7 g/dL (3.5-5.0); Alkaline Phosphatase 89 U/L (40-110); Anion Gap 13 mmol/L (10-20); BUN (Urea Nitrogen) 22 mg/dL (9.8-20.1); Bilirubin, Total 0.6 mg/dL (0.2-1.2); CK (CPK) 373 U/L (29-168); Calc. Creatinine Clearance 0 mL/min (70-130); Calcium 10.3 mg/dL (7.8-10.44); Carbon Dioxide 27 mmol/L (22-29); Chloride 104 mmol/L (98-107); Estimated GFR 27; Globulin 4.1 g/dL (2.4-3.5); Glucose 89 mg/dL (70-105); Potassium 3.9 mmol/L (3.5-5.1); Protein, Total 8.8 g/dL (6.0-8.3); Sodium 140 mmol/L (136-145)
[2023-03-05] MEDS ORDERED: Ondansetron PF 4 MG/2 ML Vial IVP PRN (16:54)
[2023-03-05 16:59] LABS: Acetaminophen Less than 10 mcg/mL (10.0-30.0); Alcohol Less than 10.0 mg/dL (Less than 10); Salicylate Less than 8.0 mg/dL (15.0-30.0)
[2023-03-05] MEDS ORDERED: Acetaminophen 650 MG Suppository PR PRN (17:24)
[2023-03-05 17:26] LABS: Bacteria/HPF None Seen HPF (None Seen); Bilirubin Negative (Negative); Blood, Urine Negative (Negative); CAUTI Indications for Culture Alt mental st,lethar; Clarity Turbid (Clear); Glucose, Urine (Dipstick) Normal (Negative); Ketone, Urine Trace mg/dL (Negative); Leukocyte 500 Leu/uL (Negative); Nitrite Negative (Negative); Pregnancy Test - Urine (BHCG) Negative (Negative); Protein, Urine (Dipstick) 50 mg/dL (Neg-Trace); RBC/HPF 0-3 HPF (0-3); Specific Gravity, Urine 1.022 (1.002-1.036); Urobilinogen Normal mg/dL (Less than 2); WBC/HPF 21-50 HPF (0-3); pH, Urine 5.5 (5.0-9.0)
[2023-03-05 17:27] LABS: Pregu Control Background? CLEAR/WHITE (CLR/WHITE); Pregu Control Bar Appear? YES (CONTROL BAR); Specific Gravity 1.022 (1.002-1.036)
[2023-03-05 17:31] LABS: Amphetamine Detected (NotDetected); Barbiturates Screen Not Detected (NotDetected); Benzodiazepine Screen Detected (NotDetected); Cocaine Metabolite Screen Not Detected (NotDetected); Methadone Not Detected (NotDetected); Methamphetamine Detected (NotDetected); Opiate Screen Detected (NotDetected); Oxycodone Screen Not Detected (NotDetected); Phencyclidine (PCP) Not Detected (NotDetected); THC/Cannabinoid Screen Detected (NotDetected); Tricyclic Screen Not Detected (NotDetected)
[2023-03-05 17:32] LABS: Urine Culture Reflex Yes Yes
[2023-03-05 18:31] VITALS: BMI 24.5
[2023-03-05] MEDS: Naloxone HCl 2 MG, Admixture Fee 1 EACH in Sodium Chloride 0.9% 500 ML IV SCH ×3 (18:34→21:57)
[2023-03-05] MEDS: Sodium Chloride 0.9% 1,000 ML IV SCH (18:38)
[2023-03-05] MEDS ORDERED: cefTRIAXone\\ROCEPHIN 1 GM in Sodium Chloride 0.9% 100 ML IVPB SCH (19:00)
[2023-03-06] MEDS: Naloxone HCl 2 MG, Admixture Fee 1 EACH in Sodium Chloride 0.9% 500 ML IV SCH (00:39)
[2023-03-06] MEDS ORDERED: Ketorolac Tromethamine 30 MG/ML VIAL IVP SCH (05:30)
[2023-03-06] MEDS: Sodium Chloride 0.9% 1,000 ML IV SCH (05:43)
[2023-03-06 06:44] LABS: #Basophils 0.1 thou/uL (0.0-0.2); #Eosinphils 0.2 thou/uL (0.0-0.7); #Monocytes 0.5 thou/uL (0.11-0.59); #Neutrophils 2.3 thou/uL (1.40-6.50); %Lymphocytes 39.4 % (21.0-51.0); %Monocytes 9.1 % (0.0-10.0); %Neutrophils 47.3 % (42.0-75.0); Hemoglobin 12.4 g/dL (12.0-16.0); Mean Corpuscular HGB CONC 31.6 g/dL (32.0-36.0); Mean Corpuscular Hemoglobin 30.4 pg (27.0-31.0); Mean Corpuscular Volume 96.1 fl (78.0-98.0); Mean Platelet Volume 10.1 fL (7.4-10.4); Platelet Count 190 10x3/uL (130-400); RBC Distribution Width 13.9 % (11.5-14.5); Red Blood Cell (RBC) Count 4.08 mill/uL (4.20-5.40)
[2023-03-06 07:21] VITALS: TEMP 98.6
[2023-03-06 07:34] LABS: ALT (SGPT) 15 U/L (8-55); AST (SGOT) 30 U/L (5-34); Albumin 3.1 g/dL (3.5-5.0); Alkaline Phosphatase 61 U/L (40-110); Anion Gap 16 mmol/L (10-20); BUN (Urea Nitrogen) 16 mg/dL (9.8-20.1); Bilirubin, Total 0.6 mg/dL (0.2-1.2); Calc. Creatinine Clearance 69 mL/min (70-130); Calcium 8.2 mg/dL (7.8-10.44); Carbon Dioxide 14 mmol/L (22-29); Chloride 113 mmol/L (98-107); Estimated GFR 69; Globulin 2.8 g/dL (2.4-3.5); Glucose 52 mg/dL (70-105); Potassium 3.8 mmol/L (3.5-5.1); Protein, Total 5.9 g/dL (6.0-8.3); Sodium 139 mmol/L (136-145)
[2023-03-06] MEDS ORDERED: Famotidine/PF 20 mg/2ml Vial SLOW IVP SCH (09:00)
== END 2023-03-06 13:00 | disposition home or self-care (01) ==
LOC: ERS 13:01 → CCU 18:03 → INTOOBSV 18:03
PROVIDERS: ADMIT Internal Medicine; ATTEND Hospitalist
DX: T40.2X1A Poisoning by other opioids, accidental (unintentional), initial encounter (principal); B19.20 Unspecified viral hepatitis C without hepatic coma; I10 Essential (primary) hypertension; F41.9 Anxiety disorder, unspecified; L93.0 Discoid lupus erythematosus; F32.A Depression, unspecified; F19.90 Other psychoactive substance use, unspecified, uncomplicated; N17.9 Acute kidney failure, unspecified; G93.41 Metabolic encephalopathy; F14.90 Cocaine use, unspecified, uncomplicated; F12.90 Cannabis use, unspecified, uncomplicated; F15.90 Other stimulant use, unspecified, uncomplicated; R41.82 Altered mental status, unspecified; F17.200 Nicotine dependence, unspecified, uncomplicated; Z79.899 Other long term (current) drug therapy
CPT/HCPCS: 36415; 51702; 80053; 80306; 80307; 81001; 81025; 82550; 84484; 85025; 87086; 93005; 96365; 96366; 96372; 96375; G0378; J0696; J1650; J1885; J2310; J3490; J7030; J7050; S0028